=== PATIENT | female | born 1950 | race Two or more races ===

== ENCOUNTER 2021-08-23 09:48 | Inpatient (IN) | payer OTHER ==
[~2021-08-23] VITALS: Ht 154.9 cm; Wt 49.4 kg
[2021-08-23] MEDS ORDERED: TRAM1TAB98 PO (10:20)
[2021-08-23] MEDS ORDERED: FAMOTIDINE40 MG PO (10:21)
[2021-08-23] MEDS ORDERED: LEVSIN0.125 MG (10:21)
[2021-08-23] MEDS ORDERED: PANTOPRAZOLE SO40 MG PO (10:21)
[2021-08-23] MEDS ORDERED: ESCITALOPRAM OX20 MG PO (10:21)
[2021-08-23] MEDS ORDERED: ZOFRAN8 MG (10:22)
[2021-09-07] MEDS ORDERED: HYOSCYAMINE0.125 M1 SL (18:47)
[2021-09-07] MEDS ORDERED: FAMOTIDINE40 MG PO (18:48)
[2021-09-07] MEDS ORDERED: PANTOPRAZOLE SO40 MG PO (18:49)
[2021-09-07] MEDS ORDERED: ZOFRAN8 MG PO (18:49)
== END 2021-09-07 19:47 | disposition home or self-care (01) | DRG 329 ==
LOC: ER 09:48 → SURH 23:42
PROVIDERS: Surgery; ADMIT Internal Medicine Hematology & Oncology; ATTEND Internal Medicine Hematology & Oncology
PROC: BW2110Z Computerized Tomography (CT Scan) of Abdomen and Pelvis using Low Osmolar Contrast, Unenhanced and Enhanced (ICD-10-PCS; 2021-08-26)
PROC: 0D9670Z Drainage of Stomach with Drainage Device, Via Natural or Artificial Opening (ICD-10-PCS; 2021-08-27)
PROC: BW2110Z Computerized Tomography (CT Scan) of Abdomen and Pelvis using Low Osmolar Contrast, Unenhanced and Enhanced (ICD-10-PCS; 2021-08-27)
PROC: 0DBN8ZX Excision of Sigmoid Colon, Via Natural or Artificial Opening Endoscopic, Diagnostic (ICD-10-PCS; 2021-08-29)
PROC: 07BC4ZZ Excision of Pelvis Lymphatic, Percutaneous Endoscopic Approach (ICD-10-PCS; 2021-08-30)
PROC: 5A0945A Assistance with Respiratory Ventilation, 24-96 Consecutive Hours, High Flow/Velocity Cannula (ICD-10-PCS; 2021-08-30)
PROC: 0D1L4Z4 Bypass Transverse Colon to Cutaneous, Percutaneous Endoscopic Approach (ICD-10-PCS; principal; 2021-08-30 09:30)
PROC: BW2110Z Computerized Tomography (CT Scan) of Abdomen and Pelvis using Low Osmolar Contrast, Unenhanced and Enhanced (ICD-10-PCS; 2021-09-01)
PROC: B246YZZ Ultrasonography of Right and Left Heart using Other Contrast (ICD-10-PCS; 2021-09-01)
PROC: 4A12X4Z Monitoring of Cardiac Electrical Activity, External Approach (ICD-10-PCS; 2021-09-02)
PROC: 0W993ZZ Drainage of Right Pleural Cavity, Percutaneous Approach (ICD-10-PCS; 2021-09-05)
DX: K56.699 Other intestinal obstruction unspecified as to partial versus complete obstruction (principal); A41.1 Sepsis due to other specified staphylococcus; I21.A1 Myocardial infarction type 2; I26.99 Other pulmonary embolism without acute cor pulmonale; J16.8 Pneumonia due to other specified infectious organisms; K52.1 Toxic gastroenteritis and colitis; C78.7 Secondary malignant neoplasm of liver and intrahepatic bile duct; C79.51 Secondary malignant neoplasm of bone; C79.71 Secondary malignant neoplasm of right adrenal gland; C77.9 Secondary and unspecified malignant neoplasm of lymph node, unspecified; E46 Unspecified protein-calorie malnutrition; N39.0 Urinary tract infection, site not specified; J91.0 Malignant pleural effusion; Z68.1 Body mass index [BMI] 19.9 or less, adult; T45.1X5A Adverse effect of antineoplastic and immunosuppressive drugs, initial encounter; C50.811 Malignant neoplasm of overlapping sites of right female breast; E86.0 Dehydration; D63.0 Anemia in neoplastic disease; J20.8 Acute bronchitis due to other specified organisms; R11.2 Nausea with vomiting, unspecified; E87.6 Hypokalemia; B96.29 Other Escherichia coli [E. coli] as the cause of diseases classified elsewhere; K63.89 Other specified diseases of intestine; Z95.828 Presence of other vascular implants and grafts; G89.3 Neoplasm related pain (acute) (chronic); D70.1 Agranulocytosis secondary to cancer chemotherapy; Z20.822 Contact with and (suspected) exposure to COVID-19

== ENCOUNTER 2021-10-16 23:26 | Emergency (ER) | payer OTHER ==
[~2021-10-16] VITALS: Ht 160 cm; Wt 47.2 kg
[~2021-10-16 23:26] MED LIST: ESCITALOPRAM OX20 MG PO; FAMOTIDINE40 MG PO; HYOSCYAMINE0.125 M1 SL; LEVSIN0.125 MG; PANTOPRAZOLE SO40 MG PO; TRAM1TAB98 PO; ZOFRAN8 MG; ZOFRAN8 MG PO
== END 2021-10-17 16:37 ==
LOC: ER 23:26
DX: G40.89 Other seizures (principal); C50.919 Malignant neoplasm of unspecified site of unspecified female breast; C79.9 Secondary malignant neoplasm of unspecified site; J90 Pleural effusion, not elsewhere classified; Z20.822 Contact with and (suspected) exposure to COVID-19; Z91.041 Radiographic dye allergy status; Z88.2 Allergy status to sulfonamides; Z91.018 Allergy to other foods